=== PATIENT | male | born 1975 | race Caucasian/White ===

== ENCOUNTER 2025-04-22 23:20 | Inpatient (IN) | payer MEDICAID ==
[~2025-04-22] VITALS: Ht 185.4 cm; Wt 95.3 kg
[2025-04-23 01:13] LABS: HEMATOCRIT. 45.0 % (42.0-52.0); HEMOGLOBIN. 14.7 g/dL (14.0-18.0); MEAN PLATELET VOLUME 11.8 fl (7.4-10.4); PLATELET 159 x1000/uL (130-400); RED BLOOD CELL COUNT 4.92 mill/uL (4.7-6.1); RED CELL DISTRIBUTION WIDTH 13.4 % (11.6-14.6)
[2025-04-23 01:23] LABS: CREATININE 1.1 mg/dL (0.6-1.3); UREA NITROGEN BLOOD 16 mg/dL (9-23)
[2025-04-23 01:48] LABS: ASPARTATE AMINOTRANSFERASE 245 IU/L (<34); BILIRUBIN DIRECT 2.5 mg/dL (<=3.0); BILIRUBIN TOTAL 3.5 mg/dL (0.1-1.0)
[2025-04-23 01:49] LABS: PROTEIN TOTAL 7.4 g/dL (6.0-8.3)
[2025-04-23] MEDS: KETOROLAC 15MG/ML VIAL IV NR (02:10)
[2025-04-23] MEDS: ONDANSETRON HCL 4MG/2ML INJ IV NR (02:10)
[2025-04-23 02:30] LABS: ETHANOL BLOOD < 10 mg/dL (<10)
[2025-04-23 02:31] LABS: BILIRUBIN DIRECT 2.5 mg/dL (<=3.0)
[2025-04-23 02:49] LABS: BAND% 3.0 % (1.0-6.0); LYMPHOCYTES % MANUAL 8.0 % (20.0-50.0); MONOCYTES % MANUAL 4.0 % (2.0-8.0); NEUTROPHILS % MANUAL 85.0 % (45.0-75.0)
[2025-04-23 02:50] LABS: PLATELET ESTIMATE NORMAL
[2025-04-23 03:32] LABS: HEPATITIS A AB IGM NEGATIVE (Negative)
[2025-04-23 03:33] LABS: HEPATITIS B CORE AB IGM NEGATIVE (Negative); HEPATITIS C AB NON REACTIVE (Neg) (Negative)
[2025-04-23 04:36] VITALS: BP 125/74; PULSE 74; RESP 15; TEMP 36.2; O2SAT 95
[2025-04-23 04:49] VITALS: BP 125/74; PULSE 74; RESP 15; TEMP 36.2
[2025-04-23 08:00] VITALS: BP 110/68; PULSE 79; RESP 17; TEMP 36.6; O2SAT 97
[2025-04-23] MEDS: SODIUM CHLORIDE 0.9% 1,000 ML IV SCH (08:00)
[2025-04-23] MEDS ORDERED: ONDANSETRON HCL 4MG/2ML INJ IV PRN (08:00)
[2025-04-23] MEDS ORDERED: MORPHINE SULFATE 2 MG/ML INJ (NOT FOR IM USE) IV PRN (08:00)
[2025-04-23] MEDS ORDERED: CLONIDINE 0.1MG TABLET PO PRN (08:00)
[2025-04-23] MEDS: PANTOPRAZOLE SODIUM 40 MG/VIAL IV SCH (09:10)
[2025-04-23 12:00] VITALS: BP 103/65; PULSE 71; RESP 18; TEMP 36.9; O2SAT 99
[2025-04-23 16:00] VITALS: BP 106/58; PULSE 72; RESP 16; TEMP 36.6; O2SAT 97
[2025-04-23] MEDS: DEXT 5%/0.9% NACL 1,000 ML IV SCH (16:30)
[2025-04-23 16:46] LABS: ASPARTATE AMINOTRANSFERASE 203 IU/L (<34)
[2025-04-23 16:47] LABS: BILIRUBIN DIRECT 3.3 mg/dL (<=3.0); BILIRUBIN TOTAL 4.5 mg/dL (0.1-1.0); PROTEIN TOTAL 6.3 g/dL (6.0-8.3)
[2025-04-23 20:00] VITALS: BP 107/73; PULSE 71; RESP 19; TEMP 36.8; O2SAT 100
[2025-04-23] MEDS ORDERED: ZOLPIDEM TARTRATE 5MG TABLET PO PRN (21:00)
[2025-04-24] VITALS: BP 102/68; PULSE 59; RESP 19; TEMP 36.4; O2SAT 100
[2025-04-24 04:00] VITALS: BP 107/65; PULSE 56; RESP 19; TEMP 36.7; O2SAT 98
[2025-04-24 08:00] VITALS: BP 69/114; PULSE 69; RESP 18; TEMP 36.4; O2SAT 100
[2025-04-24 08:24] LABS: BASOPHILS % 0.5 % (0.0-2.0); EOSINOPHILS % 2.7 % (0.0-5.0); HEMATOCRIT. 42.5 % (42.0-52.0); HEMOGLOBIN. 13.9 g/dL (14.0-18.0); LYMPHOCYTES % 20.1 % (20.0-50.0); MEAN PLATELET VOLUME 12.0 fl (7.4-10.4); MONOCYTES % 5.5 % (2.0-8.0); NEUTROPHILS % 71.2 % (40.0-76.0); PLATELET 127 x1000/uL (130-400); RED BLOOD CELL COUNT 4.67 mill/uL (4.7-6.1); RED CELL DISTRIBUTION WIDTH 13.9 % (11.6-14.6)
[2025-04-24 08:35] LABS: CREATININE 0.9 mg/dL (0.6-1.3); UREA NITROGEN BLOOD 12 mg/dL (9-23)
[2025-04-24 08:37] LABS: ASPARTATE AMINOTRANSFERASE 172 IU/L (<34); BILIRUBIN DIRECT 2.2 mg/dL (<=3.0); BILIRUBIN TOTAL 3.5 mg/dL (0.1-1.0); PROTEIN TOTAL 6.2 g/dL (6.0-8.3)
[2025-04-24 08:40] LABS: BILIRUBIN DIRECT 2.0 mg/dL (<=3.0)
[2025-04-24 12:00] VITALS: BP 112/78; PULSE 68; RESP 17; TEMP 36.6; O2SAT 99
[2025-04-24] MEDS ORDERED: DEXTROSE 50% WATER 50ML SYRINGE IV PRN (14:00)
[2025-04-24] MEDS ORDERED: NALOXONE HCL 0.4MG/ML VIAL IV PRN (14:00)
[2025-04-24 16:00] VITALS: BP 115/73; PULSE 60; RESP 19; TEMP 36.1; O2SAT 95
[2025-04-24] MEDS: BLOOD SUGAR DIAGNOSTIC STRIP TEST SCH (17:20)
[2025-04-24] MEDS: INSULIN LISPRO 100 UNITS/ML SUBCUT SCH (18:27)
[2025-04-24 20:00] VITALS: BP 115/75; PULSE 62; RESP 19; TEMP 36.6; O2SAT 96
[2025-04-25] VITALS: BP 107/69; PULSE 54; RESP 19; TEMP 36.7; O2SAT 95
[2025-04-25 04:00] VITALS: BP 104/43; PULSE 54; RESP 19; TEMP 36.3; O2SAT 99
[2025-04-25 08:00] VITALS: BP 105/61; PULSE 67; RESP 18; TEMP 37.1; O2SAT 100
[2025-04-25 08:53] LABS: BASOPHILS % 0.7 % (0.0-2.0); EOSINOPHILS % 2.3 % (0.0-5.0); HEMATOCRIT. 39.9 % (42.0-52.0); HEMOGLOBIN. 13.1 g/dL (14.0-18.0); LYMPHOCYTES % 29.3 % (20.0-50.0); MEAN PLATELET VOLUME 11.5 fl (7.4-10.4); MONOCYTES % 6.1 % (2.0-8.0); NEUTROPHILS % 61.6 % (40.0-76.0); PLATELET 123 x1000/uL (130-400); RED BLOOD CELL COUNT 4.39 mill/uL (4.7-6.1); RED CELL DISTRIBUTION WIDTH 13.4 % (11.6-14.6)
[2025-04-25 11:11] LABS: CREATININE 0.8 mg/dL (0.6-1.3); UREA NITROGEN BLOOD 10 mg/dL (9-23)
[2025-04-25 11:13] LABS: ASPARTATE AMINOTRANSFERASE 76 IU/L (<34); BILIRUBIN DIRECT 0.8 mg/dL (<=3.0)
[2025-04-25 11:14] LABS: BILIRUBIN TOTAL 1.4 mg/dL (0.1-1.0); PROTEIN TOTAL 5.6 g/dL (6.0-8.3)
[2025-04-25 12:00] VITALS: BP 111/72; PULSE 62; RESP 19; TEMP 36.8; O2SAT 95
[2025-04-25] MEDS ORDERED: GLIP5TAB22 MT (13:23)
[2025-04-25 16:39] VITALS: BP 111/72; PULSE 62; TEMP 98; O2SAT 95
[2025-04-25] MEDS ORDERED: TRAM50TA3 MT (17:10)
== END 2025-04-25 17:25 | disposition home or self-care (01) ==
LOC: ER 23:20 → 6EST 04-23 03:34 → EDBEDREQTM 04-23 03:35 → EDBEDREQ 04-23 03:35 → ENRESERV 04-23 03:51
PROVIDERS: ADMIT Internal Medicine; ATTEND Internal Medicine
DX: K80.50 Calculus of bile duct without cholangitis or cholecystitis without obstruction (principal); K76.0 Fatty (change of) liver, not elsewhere classified; R16.0 Hepatomegaly, not elsewhere classified; I10 Essential (primary) hypertension; E80.6 Other disorders of bilirubin metabolism; R74.01 Elevation of levels of liver transaminase levels; E11.65 Type 2 diabetes mellitus with hyperglycemia; Z90.49 Acquired absence of other specified parts of digestive tract
CPT/HCPCS: 36415; 74176; 74181; 76705; 80048; 80076; 80307; 80320; 80329; 82248; 82962; 82977; 83036; 85025; 86705; 86709; 87340; 93005; 93970; 99285; A4606; J1815; J1885; J2405; J2470; J7030; J7042; G0480

== ENCOUNTER 2025-04-25 21:50 | Emergency (ER) | payer MEDICAID ==
[~2025-04-25] VITALS: Ht 182.9 cm; Wt 90.0 kg
[~2025-04-25 21:50] MED LIST: GLIP5TAB22 MT; TRAM50TA3 MT
[2025-04-25 22:00] VITALS: O2SAT 98
[2025-04-25 23:06] LABS: HEMATOCRIT. 47.4 % (42.0-52.0); HEMOGLOBIN. 15.5 g/dL (14.0-18.0); MEAN PLATELET VOLUME 11.2 fl (7.4-10.4); PLATELET 175 x1000/uL (130-400); RED BLOOD CELL COUNT 5.22 mill/uL (4.7-6.1); RED CELL DISTRIBUTION WIDTH 13.7 % (11.6-14.6)
[2025-04-25 23:17] LABS: CREATININE 1.0 mg/dL (0.6-1.3); UREA NITROGEN BLOOD 9 mg/dL (9-23)
[2025-04-25 23:23] LABS: BAND% 2.0 % (1.0-6.0); LYMPHOCYTES % MANUAL 8.0 % (20.0-50.0); MONOCYTES % MANUAL 3.0 % (2.0-8.0); NEUTROPHILS % MANUAL 87.0 % (45.0-75.0); PLATELET ESTIMATE NORMAL
[2025-04-25 23:30] LABS: ASPARTATE AMINOTRANSFERASE 227 IU/L (<34); BILIRUBIN DIRECT 2.9 mg/dL (<=3.0); BILIRUBIN TOTAL 3.9 mg/dL (0.1-1.0); PROTEIN TOTAL 7.9 g/dL (6.0-8.3)
[2025-04-26 00:03] LABS: CLARITY URINE CLEAR (CLEAR); COLOR URINE DARK YELLOW (YELLOW); PH URINE 5.5 (4.5-8.0); SPECIFIC GRAVITY URINE 1.026 (1.005-1.030)
[2025-04-26 00:04] LABS: GLUCOSE URINE TRACE (NEGATIVE); KETONES URINE 3+ (NEGATIVE); LEUKOCYTE ESTERASE URINE TRACE (NEGATIVE); NITRITE URINE POSITIVE (NEGATIVE); OCCULT BLOOD URINE NEGATIVE (NEGATIVE); PROTEIN URINE TRACE (NEGATIVE); UROBILINOGEN URINE 4.0 E.U./dL (0.2-1.0)
[2025-04-26 02:16] LABS: BACTERIA URINE NONE SEEN; RBC URINE 0-2 /hpf (0-2); SQUAMOUS EPITHELIAL CELL URINE FEW /lpf (RARE/1+); WBC URINE 0-2 /hpf (0-2)
[2025-04-26] MEDS: ONDANSETRON HCL 4MG/2ML INJ IV ONE (03:26)
[2025-04-26] MEDS: KETOROLAC 15MG/ML VIAL IV ONE (03:27)
[2025-04-26] MEDS: MORPHINE SULFATE 4 MG/ML INJ (FOR IV/IM USE) IV ONE (03:28)
[2025-04-26 03:45] VITALS: BP 120/78; PULSE 89; RESP 12; TEMP 36.7; O2SAT 95
== END 2025-04-26 04:01 | disposition left against medical advice (07) ==
LOC: ER 21:50
DX: R10.13 Epigastric pain (principal); E11.9 Type 2 diabetes mellitus without complications; Z79.899 Other long term (current) drug therapy; Z53.29 Procedure and treatment not carried out because of patient's decision for other reasons; Z79.84 Long term (current) use of oral hypoglycemic drugs; Z90.49 Acquired absence of other specified parts of digestive tract
CPT/HCPCS: 80076; 80048; 81003; 82150; 83690; 85025; 36415; 93005; 99284; 96374; 96375; J1885; J2405; J2270; Z7610